=== PATIENT | female | born 1950 | race African-American/Black ===

== ENCOUNTER 2020-10-21 10:50 | Emergency (ER) | payer MEDICARE, BC ==
[2020-10-21 18:03] LABS: SARS-CoV-2 PCR by NAA Not Detected (NotDetected)
== END 2020-10-21 11:15 | disposition home or self-care (01) ==
LOC: ERS 10:50
DX: Z20.822 Contact with and (suspected) exposure to COVID-19 (principal); E03.9 Hypothyroidism, unspecified
CPT/HCPCS: U0003; U0005; 87635; 99283